=== PATIENT | male | born 1995 | race American Indian/Alaskan Native ===

== ENCOUNTER 2020-12-30 11:54 | Emergency (ER) | payer SELFPAY ==
[2020-12-30 12:59] VITALS: BP 148/90
[2020-12-30] MEDS ORDERED: TETANUS,DIPH,PERTUSS(ACELL) VACCINE 0.5 ML SYRINGE IM ONE (13:34)
[2020-12-30] MEDS ORDERED: HYDROcodone/ACETAMINOPHEN 10-325MG TAB PO ONE (13:34)
--- NOTE | 2020-12-30 14:33 | Cat Scan Report ---
. CT HEAD WITHOUT CONTRAST INDICATION / CLINICAL INFORMATION: headache with scalp lac s/p fall. TECHNIQUE: All CT scans at this location are performed using CT dose reduction for ALARA by means of automated e xposure control. COMPARISON: None available. FINDINGS: No acute intracranial hemorrhage. Ventricles are normal in size without midline shift or mass effect. No extra-axial fluid collection is seen. Visualized sinuses are clear. Visualized orbits appear norm al. ADDITIONAL FINDINGS: None. IMPRESSION: 1. No acute intracranial abnormality. Signer Name: Yfn Stern MD Signed: 12/30/2020 2:28 PM Workstation Name: [id number]
--- NOTE | 2020-12-30 15:24 | Emergency Department Report ---
- General Chief complaint: Wound/Laceration Stated complaint: HEAD SWELLING/BLEEDING Time Seen by Provider: 12/30/20 13:31 Source: patient Mode of arrival: Ambulatory Limitations: No Limitations - History of Present Illness Initial comments: This is a 25-year-old male nontoxic, well nourished in appearance, no acute signs of distress presents to the ED with c/o of right upper scalp laceration that occurred prior to arrival today. Patient stated that he hit his head against the weights. Patient stated symptoms has headaches. Denies any neck pain or back pain. Patient denies any loss of consciousness. Patient otherwise denies any other symptoms or conditions. Denies any other complaints. Denies any visual changes or blurry vision. Patient denies any other trauma or injuries. Patient stated bleeding is under control. Denies any numbness, tingling, fever, chills, nausea, vomiting, chest pain, shortness of breath, or stiff neck. Patient denies any allergies to significant past medical history. Patient is that he is not up-to-date with tetanus. MD complaint: laceration -: This afternoon Tetanus Up to Date: no Location: head Severity: mild Severity scale (0 -10): 8 Quality: aching Consistency: constant Improves with: none Worsens with: none Context: none Associated symptoms: denies other symptoms Treatments Prior to Arrival: none - Related Data Previous Rx's Medication Instructions Recorded Last Taken Type cephALEXin [Keflex] 500 mg PO Q8HR #21 cap 12/30/20 Unknown Rx Allergies Allergy/AdvReac Type Severity Reaction Status Date / Time No Known Allergies Allergy Verified 12/30/20 12:59 Abscess Boil HPI - HPI Chief Complaint: Wound/Laceration Stated Complaint: HEAD SWELLING/BLEEDING Time Seen by Provider: 12/30/20 13:31 Home Medications: Previous Rx's Medication Instructions Recorded Last Taken Type cephALEXin [Keflex] 500 mg PO Q8HR #21 cap 12/30/20 Unknown Rx Allergies/Adverse Reactions: Allergies Allergy/AdvReac Type Severity Reaction Status Date / Time No Known Allergies Allergy Verified 12/30/20 12:59 ED Review of Systems ROS: Stated complaint: HEAD SWELLING/BLEEDING Other details as noted in HPI Constitutional: denies: chills, fever Eyes: denies: eye pain, eye discharge, vision change ENT: denies: ear pain, throat pain Respiratory: denies: cough, shortness of breath, wheezing Cardiovascular: denies: chest pain, palpitations Endocrine: no symptoms reported Gastrointestinal: denies: abdominal pain, nausea, diarrhea Genitourinary: denies: urgency, dysuria Musculoskeletal: denies: back pain, joint swelling, arthralgia Skin: denies: rash, lesions Neurological: headache. denies: weakness, paresthesias Psychiatric: denies: anxiety, depression Hematological/Lymphatic: denies: easy bleeding, easy bruising ED Past Medical Hx - Medications Home Medications: Home Medications Medication Instructions Recorded Confirmed Last Taken Type cephALEXin [Keflex] 500 mg PO Q8HR #21 cap 12/30/20 Unknown Rx ED Physical Exam - General Limitations: No Limitations General appearance: alert, in no apparent distress - Head Head exam: Present: normocephalic - Expanded Head Exam Expanded Head exam: Present: laceration 1 - 1 cm superficial laceration - Eye Eye exam: Present: normal appearance, PERRL, EOMI - Neck Neck exam: Present: normal inspection, full ROM. Absent: tenderness, meningismus, lymphadenopathy - Respiratory Respiratory exam: Absent: respiratory distress - Cardiovascular Cardiovascular Exam: Present: regular rate - Extremities Exam Extremities exam: Present: normal inspection, full ROM, normal capillary refill. Absent: tenderness - Back Exam Back exam: Present: normal inspection, full ROM. Absent: tenderness, CVA tenderness (R), CVA tenderness (L), muscle spasm, paraspinal tenderness, vertebral tenderness, rash noted - Neurological Exam Neurological exam: Present: alert, oriented X3, normal gait - Expanded Neurological Exam Expanded Patient oriented to: Present: person, place, time Cranial nerves: EOM's Intact: Normal, Facial Sensation: Normal Cerebellar function: Finger to Nose: Normal Upper motor neuron: Pronator Drift: Normal, Sensory Extinction: Normal Motor strength exam: RUE: 5, LUE: 5, RLE: 5, LLE: 5 Best Eye Response (Horace): (4) open spontaneously Best Motor Response (Horace): (6) obeys commands Best Verbal Response ([place]): (5) oriented Horace Total: 15 - Psychiatric Psychiatric exam: Present: normal affect, normal mood - Skin Skin exam: Present: warm, dry, intact, normal color. Absent: rash ED Course Vital Signs 12/30/20 12/30/20 12:58 14:00 Temperature 98.6 F Pulse Rate 85 Respiratory 14 16 Rate Blood Pressure 148/90 [Left] O2 Sat by Pulse 100 Oximetry - Reevaluation(s) Reevaluation #1: 12/30/20 15:21 Patient is speaking in full sentences with no signs of distress noted. - Laceration /Wound Repair Right Head Wound Location: head (Right scalp) Wound Length (cm): 1 Wound's Depth, Shape: superficial Wound Explored: clean Irrigated w/ Saline (ccs): 40 Betadine Prep?: Yes Wound Repaired With: Dermabond Layer Closure?: No Sterile Dressing Applied?: Yes Progress: Under sterile field, I used Betadine to clean the area. I then used 40 mL of normal saline to flush the area. I then used Dermabond to approximate the la ceration. I then applied a sterile 4 x 4 with tape. Minimal bleeding noted but is under control. Patient tolerated procedure well with no signs of distress. ED Medical Decision Making - Radiology Data [facility] [address] [place] [address] Cat Scan Report Signed Patient: KATHY JONES MR#: [id number] : 1995 Acct:[id number] Age/Sex: 25 / M ADM Date: 12/30/20 Loc: ED Attending Dr: Ordering Physician: SHANI HOLDEN NP Date of Service: 12/30/20 Procedure(s): CT head/brain wo con Accession Number(s): [id number] cc: SHANI HOLDEN NP . CT HEAD WITHOUT CONTRAST INDICATION / CLINICAL INFORMATION: headache with scalp lac s/p fall. TECHNIQUE: All CT scans at this location are performed using CT dose reduction for ALARA by means of automated exposure control. COMPARISON: None available. FINDINGS: No acute intracranial hemorrhage. Ventricles are normal in size without midline shift or mass effect. No extra- axial fluid collection is seen. Visualized sinuses are clear. Visualized orbits appear normal. ADDITIONAL FINDINGS: None. IMPRESSION: 1. No acute intracranial abnormality. Signer Name: Yfn Stern MD Signed: 12/30/2020 2:28 PM Workstation Name: [email or web address] Transcribed By: CW Dictated By: BELGICA STERN MD Electronically Authenticated By: BELGICA STERN MD Signed Date/Time: 12/30/201427 DD/ 27 TD/TT: - Medical Decision Making This is a 25-year-old male that presents with laceration. Patient is stable and was examined by me. Patient is neurologically stable. CT scan has been dict ated by radiologist patient is notified with no questions noted by the patient. Patient received medical treatment in ER which stated headache has resolved and subsided. Patient educated on Dermabond repair. Will discharge patient with Keflex. Patient was instructed to refer to Follow-up with a primary care doctor in 3-5 days or if symptoms worsen and continue return to emergency room as soon as possible. At time of discharge, the patient does not seem toxic or ill in appearance. No acute signs of distress noted. Patient agrees to discharge treatment plan of care. No further questions noted by the patient. Critical care attestation.: If time is entered above; I have spent that time in minutes in the direct care of this critically ill patient, excluding procedure time. ED Disposition Clinical Impression: Laceration Scalp contusion Qualifiers: Encounter type: initial encounter Qualified Code(s): S00.03XA - Contusion of scalp, initial encounter Disposition: DC-01 TO HOME OR SELFCARE Is pt being admited?: No Does the pt Need Aspirin: No Condition: Stable Instructions: Facial or Scalp Contusion, Sutures, Shara, or Adhesive Wound Closure Additional Instructions: Follow-up with a primary care doctor in 3-5 days or if symptoms worsen and continue return to emergency room as soon as possible. Prescriptions: cephALEXin [Keflex] 500 mg PO Q8HR #21 cap Referrals: YONATHAN ZARATE MD [Primary Care Provider] - 3-5 Days EZ SOLIZ MD [Staff Physician] - 3-5 Days Forms: Work/School Release Form(ED) Time of Disposition: 15:26
== END 2020-12-30 16:00 | disposition home or self-care (01) ==
LOC: ED 11:54
DX: S01.01XA Laceration without foreign body of scalp, initial encounter (principal); W22.8XXA Striking against or struck by other objects, initial encounter; Y93.89 Activity, other specified; Y92.89 Other specified places as the place of occurrence of the external cause; Y99.8 Other external cause status
CPT/HCPCS: 70450; 90471; 90715; 99283